=== PATIENT | male | born 1985 | race Caucasian/White ===

== ENCOUNTER 2019-02-16 08:55 | Emergency (ER) | payer OTHER ==
[2019-02-16] MEDS ORDERED: Diphtheria,Pertussis(Acell),Tetanus Vaccine 0.5 ML Syringe IM ONE (09:18)
[2019-02-16] MEDS ORDERED: Bacitracin Oint 1 GM U/D Packet TOP ONE (09:56)
--- NOTE | 2019-02-16 09:58 | EDM.PDOC ---
ED HPI GENERAL MEDICAL PROBLEM - General Chief Complaint: Laceration Stated Complaint: LACERATION ON LEFT 3RD FINGER Time Seen by Provider: 02/16/19 09:55 Source of Information: Reports: Patient - History of Present Illness INITIAL COMMENTS - FREE TEXT/NARRATIVE: HISTORY AND PHYSICAL: History of present illness: []A shunt presents with a 2 cm linear laceration proximal base of his third digit on the left palmar aspect tendon function intact pre-and post suture entire limb neurovascularly intact No fever nausea vomiting chills sweats Patient was at work when the injury occurred he was moving palate with a metal strap on the palate slitted slicing his digit Review of systems: As per history of present illness and below otherwise all systems reviewed and negative. Past medical history: As per history of present illness and as reviewed below otherwise noncontributory. Surgical history: As per history of present illness and as reviewed below otherwise noncontributory. Social history: No reported history of drug or alcohol abuse. Family history: As per history of present illness and as reviewed below otherwise noncontributory. Physical exam: HEENT: Atraumatic, normocephalic, pupils reactive, negative for conjunctival pallor or scleral icterus, mucous membranes moist, throat clear, neck supple, nontender, trachea midline. Lungs: Clear to auscultation, breath sounds equal bilaterally, chest nontender. Heart: S1S2, regular, negative for clicks, rubs, or JVD. Abdomen: Soft, nondistended, nontender. Negative for masses or hepatosplenomegaly. Negative for costovertebral tenderness. Pelvis: Stable nontender. Genitourinary: Deferred. Rectal: Deferred. Extremities: Atraumatic, negative for cords or calf pain. Neurovascular unremarkable. Neuro: Awake, alert, oriented. Cranial nerves II through XII unremarkable. Cerebellum unremarkable. Motor and sensory unremarkable throughout. Exam nonfocal. Skin as per history of present illness otherwise unremarkable Diagnostics: [Clinical ] Therapeutics: [Tetanus status is updated Lidocaine Wound cleansed and explored ] #4 4-0 Prolene interrupted Standard wound care instruction Bacitracin Telfa tube dressing Sutures out in 10 days Impression: [ 2 cm linear laceration, simple ] Definitive disposition and diagnosis as appropriate pending reevaluation and review of above. 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 [No Known Home Meds] 05/14/18 [History] Past Medical History - Past Health History Medical/Surgical History: Denies Medical/Surgical History - Infectious Disease History Infectious Disease History: Reports: None Social & Family History - Family History Family Medical History: Noncontributory - Tobacco Use Smoking Status *Q: Current Every Day Smoker Years of Tobacco use: 11 Packs/Tins Daily: 0.5 - Caffeine Use Caffeine Use: Reports: Coffee, Soda ED ROS GENERAL - Review of Systems Review Of Systems: See Below ED EXAM, SKIN/RASH Exam: See Below Course - Vital Signs Last Recorded V/S: Last Vital Signs Temp 97.8 F 02/16/19 09:06 Pulse 84 02/16/19 09:06 Resp 16 02/16/19 09:06 BP 150/97 H 02/16/19 09:06 Pulse Ox 99 02/16/19 09:06 - Orders/Labs/Meds Orders: Active Orders 24 hr Category Date Time Status Vaccines to be Administered [RC] PER UNIT ROUTINE Care 02/16/19 09:18 Active Meds: Medications Discontinued Medications Generic Name Dose Route Start Last Admin Trade Name Faith PRN Reason Stop Dose Admin Diphtheria/Tetanus/Acell Pertussis 0.5 ml 02/16/19 09:18 02/16/19 09:41 Adacel IM 02/16/19 09:19 0.5 ml .ONCE ONE Administration Lidocaine HCl 5 ml 02/16/19 09:36 02/16/19 09:41 Xylocaine-Mpf 1% INJECT 02/16/19 09:37 5 ml ONETIME ONE Administration Departure - Departure Time of Disposition: 09:57 Disposition: Home, Self-Care 01 Condition: Good Clinical Impression: Laceration - Discharge Information Referrals: PCP,None [Primary Care Provider] - Additional Instructions: #4 4-0 Prolene interrupted Standard wound care instruction Bacitracin Telfa tube dressing Sutures out in 10 days [facility] [address] [place] [id number] The following information is given to patients seen in the emergency department who are being discharged to home. This information is to outline your options for follow-up care. We provide all patients seen in our emergency department with a follow-up referral. The need for follow-up, as well as the timing and circumstances, are variable depending upon the specifics of your emergency department visit. If you don't have a primary care physician on staff, we will provide you with a referral. We always advise you to contact your personal physician following an emergency department visit to inform them of the circumstance of the visit and for follow-up with them and/or the need for any referrals to a consulting specialist. The emergency department will also refer you to a specialist when appropriate. This referral assures that you have the opportunity for follow-up care with a specialist. All of these measure are taken in an effort to provide you with optimal care, which includes your follow-up. Under all circumstances we always encourage you to contact your private physician who remains a resource for coordinating your care. When calling for follow-up care, please make the office aware that this follow-up is from your recent emergency room visit. If for any reason you are refused follow-up, please contact the [facility] emergency department at and asked to speak to the emergency department charge nurse. - My Orders Last 24 Hours: My Active Orders 02/16/19 09:18 Vaccines to be Administered [RC] PER UNIT ROUTINE - Assessment/Plan Last 24 Hours: My Active Orders 02/16/19 09:18 Vaccines to be Administered [RC] PER UNIT ROUTINE
== END 2019-02-16 10:14 | disposition home or self-care (01) ==
LOC: MW.ED 08:55
DX: S61.213A Laceration without foreign body of left middle finger without damage to nail, initial encounter (principal); F17.210 Nicotine dependence, cigarettes, uncomplicated; Z23 Encounter for immunization; W26.8XXA Contact with other sharp object(s), not elsewhere classified, initial encounter; Y99.0 Civilian activity done for income or pay
CPT/HCPCS: 12001; 90471; 90715; 99282; J2001